=== PATIENT | male | born 2000 | race Caucasian/White ===

== ENCOUNTER 2018-11-10 11:32 | Outpatient (CLI) | payer MEDICAID, SELFPAY ==
[2018-11-10 11:59] LABS: Abs Immature Grans 0.06 k/cumm (0.0-0.09); Absolute Basophil Count 0.03 k/cumm (0.0-0.2); Absolute Eosinophil Count 0.13 k/cumm (0.0-0.7); Absolute Lymphocyte Count 2.24 k/cumm (1.2-3.4); Absolute Monocyte Count 0.69 k/cumm (0.11-0.7); Absolute Neutrophil Count 4.44 k/cumm (1.2-6.7); Basophils % 0.4; Eosinophils % 1.7; HCT 45.2 % (40.0-50.0); HGB 14.8 g/dL (13.5-17.5); Immature Grans % 0.8; Lymphocytes % 29.5; Mean Corp. HGB Concentration 32.7 g/dL (32.0-36.0); Mean Corpuscular Hemoglobin 28.2 pg (27.0-33.0); Mean Corpuscular Volume 86.1 fL (80-95); Mean Platelet Volume 10.7 fL (8.0-11.0); Monocytes % 9.1; Neutrophils % 58.5; Platelet Count 265 x1000/uL (130-400); RBC 5.25 m/cumm (4.50-6.00); RBC Distribution Width 12.6 % (11.8-14.1); White Blood Cell Count 7.59 k/cumm (4.4-10.8)
[2018-11-10 12:58] LABS: ALT 86 U/L (12-78); AST 30 U/L (15-37); Albumin 3.8 g/dL (3.4-5.0); Alkaline Phosphatase 94 U/L (46-116); Anion Gap 8.4 mmol/L (3-11); BUN 9 mg/dL (7-18); Bilirubin, Total 0.3 mg/dL (0.2-1.0); CO2 27.6 mmol/L (21.0-32.0); CREATININE 0.67 mg/dL (0.70-1.30); Calcium 9.5 mg/dL (8.5-10.1); Chloride 101 mmol/L (98-107); Cholesterol 218 mg/dL (50-200); Glucose 93 mg/dL (70-100); HDL Cholesterol 33 mg/dL (40-60); LDL CHOLESTEROL 153 mg/dL (<100); Potassium 4.3 mmol/L (3.5-5.1); Sodium 137 mmol/L (136-145); TSH (W/Ref FT4) 1.42 uIU/mL (0.516-4.13); Total Protein 7.3 g/dL (6.4-8.2); Triglyceride 215 mg/dL (30-150)
== END 2018-11-10 11:52 ==
PROVIDERS: PCP Pediatrics; Visit Provider Pediatrics
DX: Z13.0 Encounter for screening for diseases of the blood and blood-forming organs and certain disorders involving the immune mechanism (principal); Z13.228 Encounter for screening for other metabolic disorders; Z13.220 Encounter for screening for lipoid disorders; Z13.29 Encounter for screening for other suspected endocrine disorder
CPT/HCPCS: 36415; 80053; 80061; 83721; 84443; 85025

== ENCOUNTER 2020-06-09 12:05 | Outpatient (REF) | payer MEDICAID, SELFPAY | END 2020-06-09 12:25 | LOC: NCHCN 12:05 | PROVIDERS: Visit Provider Nurse Practitioner Family | DX: R69 Illness, unspecified (principal) | CPT/HCPCS: 87491; 87591 ==

== ENCOUNTER 2020-06-20 12:01 | Outpatient (REF) | payer MEDICAID, SELFPAY ==
[2020-06-20 20:37] LABS: Anion Gap 8.7 mmol/L (3-11); BUN 11 mg/dL (7-18); CO2 25.3 mmol/L (21.0-32.0); CREATININE 0.81 mg/dL (0.70-1.30); Calcium 9.2 mg/dL (8.5-10.1); Chloride 103 mmol/L (98-107); Glucose 93 mg/dL (74-106); Potassium 4.1 mmol/L (3.5-5.1); Sodium 137 mmol/L (136-145)
[2020-06-20 21:22] LABS: Calculated LDL 149 mg/dL (<100); Cholesterol 216 mg/dL (<200); HDL Cholesterol 36 mg/dL (40-60); Triglyceride 157 mg/dL (<150)
[2020-06-24 11:11] LABS: Syphilis Total Ab w/Reflex Nonreactive (Nonreactive)
[2020-06-25 09:52] LABS: Chlamydia amplified RNA Negative (Negative); N gonorrhoeae amplified RNA Negative (Negative)
[2020-07-01 09:33] LABS: HIV-1/2 Ag & Ab Screen Negative (Negative)
[2020-07-04 10:51] LABS: Hepatitis C Ab w Rflx HCV PCR Negative (Negative)
== END 2020-06-20 12:21 ==
LOC: NCHCN 12:01
PROVIDERS: Visit Provider Nurse Practitioner Family
DX: Z13.220 Encounter for screening for lipoid disorders (principal); Z11.4 Encounter for screening for human immunodeficiency virus [HIV]; Z11.59 Encounter for screening for other viral diseases; Z00.00 Encounter for general adult medical examination without abnormal findings
CPT/HCPCS: 80048; 80061; 86803; 87389; 87491; 87591; 86780

== ENCOUNTER 2022-06-14 15:49 | Outpatient (REF) | payer MEDICAID, SELFPAY ==
[2022-06-14 17:26] LABS: Calculated LDL 164 mg/dL (<100); Cholesterol 232 mg/dL (<200); HDL Cholesterol 47 mg/dL (40-60); Triglyceride 107 mg/dL (<150)
[2022-06-16 09:53] LABS: Hepatitis C Ab w Rflx HCV PCR Negative (Negative)
[2022-06-16 10:12] LABS: HIV-1/2 Ag & Ab Screen Negative (Negative)
[2022-06-16 10:36] LABS: Syphilis Serology (RPR) Negative (Negative)
[2022-06-16 15:09] LABS: Chlamydia Result Negative (Negative); GC Result Negative (Negative)
== END 2022-06-14 15:50 | disposition home or self-care (01) ==
LOC: NCHCN 15:49
PROVIDERS: PCP Nurse Practitioner Family; Visit Provider Nurse Practitioner Family
DX: E78.5 Hyperlipidemia, unspecified (principal); Z11.3 Encounter for screening for infections with a predominantly sexual mode of transmission; Z11.4 Encounter for screening for human immunodeficiency virus [HIV]; Z11.59 Encounter for screening for other viral diseases; Z00.00 Encounter for general adult medical examination without abnormal findings
CPT/HCPCS: 80061; 86803; 87389; 87491; 87591; 86592

== ENCOUNTER 2023-06-16 11:30 | Outpatient (REF) | payer BC, SELFPAY ==
[2023-06-16 16:13] LABS: ALT 34 U/L (16-63); AST 21 U/L (15-37); Albumin 3.8 g/dL (3.4-5.0); Alkaline Phosphatase 82 U/L (46-116); Anion Gap 8.3 mmol/L (3-11); BUN 12 mg/dL (7-18); Bilirubin, Total 0.6 mg/dL (0.2-1.0); CO2 26.7 mmol/L (21.0-32.0); CREATININE 0.7 mg/dL (0.70-1.30); Calcium 9.5 mg/dL (8.5-10.1); Calculated LDL 150 mg/dL (<100); Chloride 105 mmol/L (98-107); Cholesterol 207 mg/dL (<200); Estimated GFR 131.95 (mL/min/1.73m2); Glucose 99 mg/dL (74-106); HDL Cholesterol 40 mg/dL (40-60); Potassium 4.1 mmol/L (3.5-5.1); Sodium 140 mmol/L (136-145); Total Protein 7.3 g/dL (6.4-8.2); Triglyceride 86 mg/dL (<150)
== END 2023-06-16 11:31 | disposition home or self-care (01) ==
LOC: NCHCN 11:30
PROVIDERS: PCP Nurse Practitioner Family; Visit Provider Nurse Practitioner Family
DX: Z00.00 Encounter for general adult medical examination without abnormal findings (principal); Z13.6 Encounter for screening for cardiovascular disorders
CPT/HCPCS: 80053; 80061

== ENCOUNTER 2025-07-08 13:20 | Outpatient (REF) | payer BC, SELFPAY ==
[2025-07-10 11:19] LABS: Chlamydia Result Negative (Negative); GC Result Negative (Negative)
== END 2025-07-08 13:21 | disposition home or self-care (01) ==
LOC: NCHCN 13:20
PROVIDERS: PCP Nurse Practitioner Family; Visit Provider Nurse Practitioner Family
DX: Z11.3 Encounter for screening for infections with a predominantly sexual mode of transmission (principal)
CPT/HCPCS: 87491; 87591

== ENCOUNTER 2025-07-16 08:59 | Outpatient (REF) | payer BC, SELFPAY ==
[2025-07-16 15:58] LABS: Hemoglobin A1C 5.4 % (<5.7)
[2025-07-16 16:20] LABS: ALT 61 U/L (10-49); AST 34 U/L (<34); Albumin 4.3 g/dL (3.2-5.0); Alkaline Phosphatase 74 U/L (46-116); Anion Gap 9.8 mmol/L (3-11); BUN 11 mg/dL (9-23); Bilirubin, Total 0.5 mg/dL (0.2-1.2); CO2 26.2 mmol/L (20.0-31.0); Calcium 9.0 mg/dL (8.3-10.6); Chloride 103 mmol/L (98-107); Cholesterol 232 mg/dL (<200); Glucose 94 mg/dL (74-106); HDL Cholesterol 47 mg/dL (>40); Potassium 3.9 mmol/L (3.5-5.1); Sodium 139 mmol/L (136-145); Total Protein 7.2 g/dL (5.7-8.2)
[2025-07-17 00:24] LABS: HIV-1/2 Ag & Ab Screen Negative (Negative)
[2025-07-17 00:34] LABS: Hepatitis C Ab w Rflx HCV PCR Negative (Negative)
[2025-07-17 11:02] LABS: Syphilis Serology (RPR) Negative (Negative)
== END 2025-07-16 09:00 | disposition home or self-care (01) ==
LOC: NCHCN 08:59
PROVIDERS: PCP Nurse Practitioner Family; Visit Provider Nurse Practitioner Family
DX: Z11.3 Encounter for screening for infections with a predominantly sexual mode of transmission (principal); E78.5 Hyperlipidemia, unspecified; Z13.1 Encounter for screening for diabetes mellitus
CPT/HCPCS: 80053; 80061; 86803; 87389; 83036; 86592